=== PATIENT | female | born 1955 | race Two or more races ===

== ENCOUNTER 2017-05-16 15:02 | Emergency (ER) | payer OTHER ==
[~2017-05-16] VITALS: Ht 152.4 cm; Wt 68.0 kg
[~2017-05-16 15:02] MED LIST: INSU100C10 SQ; INSU100C7 SQ; LEVO500T15 PO; ONDA8TAB13; PROC10TA29 PO; SITA1TAB2 PO
[2017-05-16] MEDS ORDERED: ACETAMINOPHEN ES 500 MG TABLET ONE (15:45)
[2017-05-16] MEDS ORDERED: LORAZEPAM 1 MG TABLET ONE (15:46)
[2017-05-16 15:54] VITALS: BP 186/73
[2017-05-16] MEDS ORDERED: LORAZEPAM 1 MG TABLET PO ONE (16:00)
[2017-05-16] MEDS ORDERED: ACETAMINOPHEN ES 500 MG TABLET PO ONE (16:00)
== END 2017-05-16 16:22 | disposition home or self-care (01) ==
LOC: ER 15:08
DX: F41.0 Panic disorder [episodic paroxysmal anxiety] (principal); R51 Headache; E11.9 Type 2 diabetes mellitus without complications; I10 Essential (primary) hypertension; Z79.4 Long term (current) use of insulin
CPT/HCPCS: 93005; 99283; A4606; Z7610

== ENCOUNTER 2017-11-01 21:02 | Emergency (ER) | payer OTHER ==
[~2017-11-01] VITALS: Ht 154.9 cm; Wt 78.0 kg
[~2017-11-01 21:02] MED LIST changes: -LEVO500T15 PO; +LEVO500T2 PO
--- NOTE | 2017-11-01 21:14 | NUR ---
PT AMBULATORY TO ER BED 6. PT BIBSELF C/O LLE PAIN X 10 DAYS. DENIES TRAUMA. VSS/RESP EVEN UNLABORED/NAD NOTED/SKIN WARM AND DRY/DENIES N-V-D/AOX4. AWAITING MD MOSS.
[2017-11-01] MEDS ORDERED: IBUPROFEN 400 MG TABLET ONE (22:23)
[2017-11-01] MEDS ORDERED: VALACYCLOVIR HCL 500 MG TABLET ONE (22:23)
[2017-11-01] MEDS ORDERED: IBUPROFEN 400 MG TABLET PO ONE (22:30)
[2017-11-01] MEDS ORDERED: VALACYCLOVIR HCL 500 MG TABLET PO ONE (22:30)
--- NOTE | 2017-11-01 22:51 | NUR ---
Patient discharged to home in stable condition. Written and verbal after care instructions given. Patient verbalizes understanding of instruction. Patient ambulatory with a steady gait.
[2017-11-01 22:52] VITALS: BP 140/78
== END 2017-11-01 22:53 | disposition home or self-care (01) ==
LOC: ER 21:04
DX: B02.23 Postherpetic polyneuropathy (principal); E11.9 Type 2 diabetes mellitus without complications; E78.00 Pure hypercholesterolemia, unspecified; I10 Essential (primary) hypertension; Z79.4 Long term (current) use of insulin; Z85.3 Personal history of malignant neoplasm of breast
CPT/HCPCS: 99283; A4606 ×2; Z7610 ×2

== ENCOUNTER 2019-01-15 12:23 | Emergency (ER) | payer OTHER ==
[~2019-01-15] VITALS: Ht 157.5 cm; Wt 78.9 kg
--- NOTE | 2019-01-15 12:23 | NUR ---
PT BIB SELF C/O RUQ ABDOMINAL PAIN X 3 DAYS, -N/V/D, PT IS AAOX4, NOT IN RESPIRATORY DISTRESS, V/S STABLE, KEPT RESTED AND COMFORTABLE, WILL CONTINUE TO MONITOR.
--- NOTE | 2019-01-15 13:10 | NUR ---
PT SEEN AND EXAMINED BY MARNI NEUMANN NP.
--- NOTE | 2019-01-15 13:20 | NUR ---
LABS DRAWNED BY ER PHLEB.
[2019-01-15 13:26] LABS: BASOPHILS % (AUTO) 0.6 % (0.0-2.0); EOSINOPHILS % (AUTO) 1.6 % (0.0-6.0); HEMATOCRIT 38 % (33-45); HEMOGLOBIN 12.6 g/dL (11.5-14.8); LYMPHOCYTES # (AUTO) 2.2 /CMM (0.8-4.8); LYMPHOCYTES % (AUTO) 38.1 % (20.0-44.0); MEAN CORPUSCULAR HGB CONC 34 g/dl (31.0-36.0); MEAN CORPUSCULAR VOLUME 81 fL (82-100); MONOCYTES # (AUTO) 0.5 /CMM (0.1-1.30); MONOCYTES % (AUTO) 8.4 % (2.0-12.0); NEUTROPHILS % (AUTO) 51.3 % (43.0-81.0); PLATELET COUNT (AUTO) 113 /CMM (150-450); RED BLOOD CELL COUNT(AUTO) 4.63 MIL/uL (4.0-5.2); WHITE BLOOD COUNT (AUTO) 5.9 K/uL (4.3-11.0)
[2019-01-15 13:34] LABS: CALCIUM, SERUM 8.9 mg/dL (8.5-10.1); CREATININE 0.6 mg/dL (0.6-1.3); POTASSIUM 3.5 mmol/L (3.5-5.1)
[2019-01-15 13:42] LABS: ALBUMIN 3.2 g/dL (3.4-5.0); BILIRUBIN,DIRECT 0.1 mg/dL (0.0-0.2); BILIRUBIN,TOTAL 0.3 mg/dL (0.2-1.0); TOTAL PROTEIN, SERUM 7.5 g/dL (6.4-8.2)
[2019-01-15] MEDS ORDERED: MAG HYDROX/AL HYDROX/SIMETH 30 ML UDC PO ONE (14:30)
[2019-01-15] MEDS ORDERED: LIDOCAINE VISCOUS 2% UD 15 ML UDC MM ONE (14:30)
[2019-01-15] MEDS ORDERED: LIDOCAINE VISCOUS 2% UD 15 ML UDC ONE (14:35)
[2019-01-15] MEDS ORDERED: MAG HYDROX/AL HYDROX/SIMETH 30 ML UDC ONE (14:36)
[2019-01-15 14:37] LABS: BILIRUBIN,URINE Negative (NEGATIVE); BLOOD, URINE Negative Ery/uL (NEGATIVE); COLOR,URINE Yellow (YELLOW); KETONES,URINE Negative (NEGATIVE); LEUKOCYTE ESTERASE ,URINE Trace (NEGATIVE); NITRITE, URINE Negative (NEGATIVE); PROTEIN,URINE Negative (NEGATIVE); UGLUCOSE 500 MG/DL mg/dL (NEGATIVE); UROBILINOGEN,URINE 0.2 EU/dL (0.2)
[2019-01-15 14:38] LABS: APPEARANCE,URINE Hazy (CLEAR)
[2019-01-15 14:43] LABS: BACTERIA,URINE None seen /HPF (None Seen); SQUAMOUS EPITHELIAL CELL,UR Few /HPF (None Seen)
[2019-01-15 14:44] LABS: URINE AMORPHOUS PHOSPHATES Few /HPF (None Seen)
[2019-01-15] MEDS ORDERED: IV NS 0.9% 250 ML IV ONE (15:16)
[2019-01-15] MEDS ORDERED: CT SWABBABLE VALVE TRANS SET 1 EA INFUS.SET MC ONE (15:16)
[2019-01-15] MEDS ORDERED: IOHEXOL-300 100 ML VIAL IV ONE (15:16)
--- NOTE | 2019-01-15 16:44 | NUR ---
Patient discharged to home in stable condition. Written and verbal after care instructions given. Patient verbalizes understanding of instruction.
[2019-01-15 16:45] VITALS: BP 133/71
== END 2019-01-15 17:01 | disposition home or self-care (01) ==
LOC: ER 12:23
DX: K29.70 Gastritis, unspecified, without bleeding (principal); R33.9 Retention of urine, unspecified; E11.9 Type 2 diabetes mellitus without complications; I10 Essential (primary) hypertension; E78.00 Pure hypercholesterolemia, unspecified; Z85.3 Personal history of malignant neoplasm of breast; Z90.11 Acquired absence of right breast and nipple; Z79.4 Long term (current) use of insulin
CPT/HCPCS: 36415; 74177; 76705; 80048; 80076; 81001; 83690; 85025; 85730; 99284; J7050; Q9967; 81000-TC

== ENCOUNTER 2019-12-15 14:03 | Emergency (ER) | payer MEDICARE, OTHER ==
[~2019-12-15] VITALS: Ht 165.1 cm; Wt 76.2 kg
--- NOTE | 2019-12-15 14:15 | NUR ---
BIB RA C/O HEADACHE, ABDOMINAL PAIN, WITH NAUSEA AND VOMITING. PATIENT A/OX4, BREATHING EVEN AND UNLABORED, NO SOB NOTED, VOMITED X1.
[2019-12-15] MEDS ORDERED: ONDANSETRON HCL/PF 4 MG/2 ML VIAL IVP ONE (14:30)
[2019-12-15] MEDS ORDERED: MORPHINE SULFATE INJ 2 MG/ML DISP.SYRIN IV ONE (14:30)
[2019-12-15] MEDS ORDERED: diphenhydrAMINE HCL 50 MG/ML VIAL IV ONE (14:30)
[2019-12-15] MEDS ORDERED: ONDANSETRON HCL/PF 4 MG/2 ML VIAL ONE (14:32)
[2019-12-15] MEDS ORDERED: MORPHINE SULFATE INJ 2 MG/ML DISP.SYRIN ONE (14:32)
[2019-12-15] MEDS ORDERED: diphenhydrAMINE HCL 50 MG/ML VIAL ONE (14:32)
[2019-12-15 14:48] LABS: BASOPHILS # (AUTO) 0.1 /CMM (0.0-0.2); BASOPHILS % (AUTO) 0.6 % (0.0-2.0); EOSINOPHILS % (AUTO) 0.4 % (0.0-6.0); HEMATOCRIT 40 % (33-45); HEMOGLOBIN 13.3 g/dL (11.5-14.8); LYMPHOCYTES # (AUTO) 2.1 /CMM (0.8-4.8); LYMPHOCYTES % (AUTO) 19.2 % (20.0-44.0); MEAN CORPUSCULAR HGB CONC 33 g/dl (31.0-36.0); MEAN CORPUSCULAR VOLUME 80 fL (82-100); MONOCYTES # (AUTO) 0.6 /CMM (0.1-1.30); MONOCYTES % (AUTO) 5.3 % (2.0-12.0); NEUTROPHILS # (AUTO) 8.3 /CMM (1.8-8.9); NEUTROPHILS % (AUTO) 74.5 % (43.0-81.0); PLATELET COUNT (AUTO) 130 /CMM (150-450); RED BLOOD CELL COUNT(AUTO) 4.98 MIL/uL (4.0-5.2); WHITE BLOOD COUNT (AUTO) 11.1 K/uL (4.3-11.0)
[2019-12-15 14:52] LABS: CALCIUM, SERUM 9.1 mg/dL (8.5-10.1); CARBON DIOXIDE 26 mmol/L (21-32); CHLORIDE 106 mmol/L (98-107); CREATININE 0.6 mg/dL (0.6-1.3); GLUCOSE 104 mg/dL (74-106); POTASSIUM 3.4 mmol/L (3.5-5.1); SODIUM SERUM 144 mmol/L (136-145); UREA NITROGEN, BLOOD 12 mg/dL (7-18)
[2019-12-15] MEDS ORDERED: TRAMADOL HCL 50 MG TABLET ONE (15:50)
--- NOTE | 2019-12-15 15:52 | NUR ---
PATIENT UNABLE TO PROVIDE URINE SAMPLE.
[2019-12-15] MEDS ORDERED: TRAMADOL HCL 50 MG TABLET PO ONE (16:00)
--- NOTE | 2019-12-15 16:03 | NUR ---
IV removed. Catheter intact and site benign. Pressure and 4x4 applied to site. No bleeding noted.
--- NOTE | 2019-12-15 16:38 | NUR ---
Patient discharged to home in stable condition. Written and verbal after care instructions given. Patient verbalizes understanding of instruction.
[2019-12-15 16:39] VITALS: BP 115/42
== END 2019-12-15 16:39 | disposition home or self-care (01) ==
LOC: ER 14:14
DX: R51 Headache (principal); R07.89 Other chest pain; I10 Essential (primary) hypertension; E11.9 Type 2 diabetes mellitus without complications; E78.00 Pure hypercholesterolemia, unspecified; Z98.890 Other specified postprocedural states; Z79.4 Long term (current) use of insulin; Z79.899 Other long term (current) drug therapy; Z79.84 Long term (current) use of oral hypoglycemic drugs
CPT/HCPCS: 36415; 70450; 71045; 80048; 84484; 85025; 93005 ×2; 96374; 96375; 99285; J1200; J2405; J2270

== ENCOUNTER 2022-10-02 04:40 | Emergency (ER) | payer MEDICARE, OTHER ==
[~2022-10-02] VITALS: Ht 160 cm; Wt 82.1 kg
--- NOTE | 2022-10-02 05:10 | NUR ---
BIBS C/O BLOOD IN URINE AND PAIN X 1 MONTH. PATIENT IS ARMAN[place] SPEAKING. AAOX4. AMBULATORY. ABLE TO MAKE NEEDS KNOWN. PLACED COMFORTABLY IN BED. VITALS CHECKED.
--- NOTE | 2022-10-02 05:12 | NUR ---
SEEN AND EXAMINED BY DR PEDROZA
--- NOTE | 2022-10-02 05:55 | NUR ---
URINE SPECIMEN SENT TO LAB
--- NOTE | 2022-10-02 06:35 | NUR ---
ACCOMPANIED DR GTZ FOR RECTAL EXAM.
[2022-10-02] MEDS ORDERED: HYDR453.3 TP (06:45)
[2022-10-02] MEDS ORDERED: PHEN26CR2 RC (06:45)
[2022-10-02] MEDS ORDERED: CLOT15CR27 TP (06:45)
[2022-10-02 07:46] LABS: BILIRUBIN,URINE NEGATIVE (NEGATIVE); COLOR,URINE YELLOW (YELLOW); LEUKOCYTE ESTERASE ,URINE 1+ (NEGATIVE); NITRITE, URINE NEGATIVE (NEGATIVE); PH,URINE 5.5 (5.0-8.0); PROTEIN,URINE 1+ mg/dl (NEGATIVE); UGLUCOSE NEGATIVE (NEGATIVE); UROBILINOGEN,URINE 0.2 EU/dL (0.2)
--- NOTE | 2022-10-02 08:32 | NUR ---
call patient for results [phone]
[2022-10-02 08:33] VITALS: BP 135/81
--- NOTE | 2022-10-02 08:33 | NUR ---
Patient discharged to home in stable condition. Written and verbal after care instructions given. Patient verbalizes understanding of instruction.
[2022-10-02 08:58] LABS: BACTERIA,URINE Few /HPF (None Seen)
[2022-10-02 08:59] LABS: SQUAMOUS EPITHELIAL CELL,UR Moderate /HPF (None Seen)
[2022-10-02] MEDS ORDERED: NITR100C PO (09:29)
== END 2022-10-02 08:34 | disposition home or self-care (01) ==
LOC: ER 04:42
DX: K64.4 Residual hemorrhoidal skin tags (principal); N89.8 Other specified noninflammatory disorders of vagina; N39.0 Urinary tract infection, site not specified; I10 Essential (primary) hypertension; E11.9 Type 2 diabetes mellitus without complications; E78.00 Pure hypercholesterolemia, unspecified; Z90.11 Acquired absence of right breast and nipple; Z79.899 Other long term (current) drug therapy
CPT/HCPCS: 81001; 87086-TC